=== PATIENT | female | born 1945 | race Caucasian/White ===

== ENCOUNTER → 2017-02-16 | Day surgery (SDC) | payer OTHER ==
[~2017-02-16] MED LIST: ACID REDUCER20 MG PO; ALLEGRA ALLERG180 MG PO; ASPIRIN81 MG PO; ATARAX PO; ATENOLOL PO; BENADRYL25 M1 PO; BENADRYL25 M3 PO; BENADRYL25 MG PO; BIOTIN2500 MCG PO; CHOL MED; DILTIAZEM 24HR120 M1 PO; DILTIAZEM 24HR120 MG PO; ERYTHROMYCIN O3.5 GM OD; FAMOTIDINE PO; FEXOFENADINE HC30 MG PO; FISH OIL 1,001000 M2 PO; FISH OIL500 MG PO; KEFLEX500 M1 PO; LISINOPRIL; LO-DOSE ASPIRIN81 M1 PO; MELATONIN3 M4 PO; MIRALAX17 GM PO; MOBIC15 MG PO; MONTELUKAST SOD10 MG PO; PANTOPRAZOLE SO40 MG PO; PEPCID AC20 M2 PO; PRAVASTATIN SOD40 MG PO; PREDNISONE PO; TENORMIN25 M1 PO; VITAMIN C250 MG PO; VITAMIN D32000 UNI1 PO; ZOCOR
--- NOTE | ~2017-02-16 | OR ---
Unit #: [id number] #: [id number] Patient: MORGAN HOPPER [id number] [address] [address] [id number] MR#: [id number] NAME: MORGAN HOPPER. ROOM: Date of Procedure: 02/16/2017 Admission Date: 02/16/2017 Surgeon: Andres Potts M.D. : 1945 Attending Physician: Andres Potts M.D. Primary Care Physician: Clint Griffin M.D. OPERATIVE REPORT PROCEDURE PERFORMED Colonoscopy to terminal ileum with biopsy. INDICATIONS FOR PROCEDURE New onset diarrhea, strong history of colon cancer in both of her parents. MEDICATIONS Monitored anesthesia. POSTOPERATIVE FINDINGS 1. Colonoscopy to cecum and terminal ileum. No colitis was seen. Random biopsies taken looking for microscopic colitis. 2. No polyps or masses were seen. PLAN Symptomatic treatment for diarrhea. Follow up on the pathology report. DESCRIPTION OF PROCEDURE The patient was explained of the procedure, risks, and benefits along with risks and benefits of anesthesia. She was brought to the endoscopy room. Propofol anesthesia was given. Rectal exam was done, which was normal. Colonoscope was lubricated, passed up the rectum, advanced under direct vision all the way to the cecum. Cecum was identified by ileocecal valve and appendiceal orifice. Terminal ileum was intubated, shows normal mucosa. Colonic mucosa was normal. Random biopsies taken. I retroflexed in the rectum, small hemorrhoids seen. Gently, the scope was pulled out. She tolerated it well. Dictated by... Rhonda Escalante/александр TD: 02/16/2017 23:35 JOB #: [id number] Unit #: [id number] #: [id number] Patient: MORGAN HOPPER OPERATIVE REPORT Page 1 of 1 X Andres Potts MD X PROCEDURE OPERATIVE NOTE
== END | disposition home or self-care (01) ==
LOC: COPS 07:36
DX: R19.7 Diarrhea, unspecified (principal); Z80.0 Family history of malignant neoplasm of digestive organs; I10 Essential (primary) hypertension; Z88.2 Allergy status to sulfonamides; Z91.041 Radiographic dye allergy status; M41.9 Scoliosis, unspecified
CPT/HCPCS: 88305